=== PATIENT | male | born 1935 | race Caucasian/White ===

== ENCOUNTER 2019-01-28 08:42 | Emergency (ER) | payer OTHER, MEDICARE ==
--- NOTE | 2019-01-28 09:18 | EDPHY ---
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 He lives at [facility] and the staff was assisting him to stand up. Upon standing, he slumped over and then had generalized seizure-like activity. He was helped to the floor and did not hurt himself. He was somnulent after the episode, unknown if confused as he is nonverbal. He is currently sleeping and snoring, which is not unusual activity for him, according to his son. REVIEW OF SYSTEMS: unable to obtain - Personal History Current Tetanus/Diphtheria Vaccine: Yes Tetanus Vaccine Date: 2003 - Medical/Surgical History Hx Asthma: No Hx Chronic Respiratory Disease: No Hx Diabetes: No Hx Cardiac Disease: No Hx Renal Disease: No Hx Cirrhosis: No Hx Alcoholism: No Hx HIV/AIDS: No Hx Splenectomy or Spleen Trauma: No Other PMH: Alzheimer's disease - Social History Smoking Status: Former smoker Alcohol Use: None Drug Use: None Additional Social History: - Physical Exam Exam: General Appearance: Lethargic, groans to verbal stimuli, opens eyes spontaneously and looks around Eyes: Pupils equal and round, no conjunctival pallor or injection ENT, Mouth: Mucous membranes moist Neck: Normal inspection Respiratory: Lungs are clear to auscultation anteriorly Cardiovascular: Regular rate and rhythm Gastrointestinal: Abdomen is soft and nontender Neurological: Lethargic, moves all extremities equally, does not follow commands, nonfocal exam Skin: Warm and dry Extremities: Normal inspection on exposed skin Psychiatric: Unable to determine Constitutional: Initial Vital Signs Heart Rate 73 01/28/19 08:59 Respiratory Rate 16 01/28/19 08:59 Blood Pressure 93/59 L 01/28/19 08:59 O2 Sat (%) 91 L 01/28/19 08:59 O2 Delivery Mode Room Air O2 (L/minute) 2 Allergies/Adverse Reactions: celecoxib [From Celebrex] Allergy (Intermediate, Verified 01/28/19 09:13) Rash Penicillins Allergy (Intermediate, Verified 01/28/19 09:13) Rash Home Medications: Medication Instructions Recorded Donepezil HCl [Aricept] 10 mg PO DAILY 03/17/16 Doxazosin Mesylate [Cardura 4 MG 4 mg PO DAILY 03/17/16 (RX)] Finasteride [Proscar 5 MG (*)] 5 mg PO DAILY 03/17/16 Memantine HCl [Namenda Xr] 28 mg PO DAILY 03/17/16 Omeprazole [Prilosec 20 mg] 20 mg PO DAILY 03/17/16 Rosuvastatin Calcium [Crestor 40mg 40 mg PO DAILY 03/17/16 (RX)] levOFLOXACIN [levAQUIN (RX)] 750 mg PO DAILY #5 tab 03/17/16 Medical Decision Making - Diagnostics EKG Interpretation: EKG interpreted by me reveals NSR, rate 69, IVCD, no St/T changes. Interpretation: abnormal EKG ED Course/Re-evaluation: This patient presents after an episode of loss of consciousness, either secondary to a primary seizure or to a syncopal episode. He has baseline hypotension, according to the son and a blood pressure of 93/67 is not unusual for him. Mental status is typical for the patient as well. He has advanced dementia and often sleeps throughout most the day and does not speak. Discussion with the son, declines CT scan or further evaluation for seizure/ syncope. Comfort care only, labs ok. The family is in agreement with this and the patient has a DNR order. Will obtain labs and EKG and will monitor for 1-2 hours. IV NS 1 liter given for possible dehydration. During ED obs, pt remained at baseline MS. Ate cookies/drank fluids, more alert while eating. Labs/EKG unremarkable. hall monitor: NSR throughout. Family would like to take him home. Understand limitations in diagnosis, comfortable with decision not to proceed with eval. Differential Diagnosis: Altered mental status including but not limited to hypoglycemia, infectious process, electrolyte abnormality, head injury, CVA, and intoxicants. - Data Points Laboratory Results: Laboratory Results 01/28/19 09:05 01/28/19 09:05 01/28/19 01/28/19 01/28/19 09:22 09:15 09:05 WBC RBC Hgb POC Hgb 14.6 gm/dL gm/dL (13.7-17.5) Hct POC Hct 43 % % (40-51) MCV MCH MCHC RDW Plt Count MPV Neut % (Auto) Lymph % (Auto) Brule % (Auto) Eos % (Auto) Baso % (Auto) Nucleat RBC Rel Count Absolute Neuts (auto) Absolute Lymphs (auto) Absolute Monos (auto) Absolute Eos (auto) Absolute Basos (auto) Absolute Nucleated RBC Immature Gran % Immature Gran # POC Sodium 144 mEq/L mEq/L (135-145) Sodium 140 mEq/L mEq/L (135-145) POC Potassium 3.4 mEq/L mEq/L (3.3-5.0) Potassium 3.7 mEq/L mEq/L (3.5-5.2) POC Chloride 107 mEq/L mEq/L (97-110) Chloride 108 mEq/L mEq/L (97-110) Carbon Dioxide 18 mEq/l L mEq/l (22-31) POC Total CO2 17 mEq/L L mEq/L (22-31) Anion Gap 14 mEq/L mEq/L (6-14) POC BUN 17 mg/dL mg/dL (7-23) BUN 17 mg/dL mg/dL (7-23) Creatinine 0.9 mg/dL mg/dL (0.7-1.3) POC Creatinine 0.8 mg/dL mg/dL (0.7-1.3) Estimated GFR > 60 Glucose 116 mg/dL H mg/dL (70-100) POC Glucose 119 mg/dL H mg/dL (70-100) Calcium 8.9 mg/dL mg/dL (8.5-10.4) POC Troponin I 0.00 ng/mL ng/mL (0.00-0.08) 01/28/19 09:05 WBC 5.93 10^3/uL 10^3/uL (3.80-9.50) RBC 4.71 10^6/uL 10^6/uL (4.40-6.38) Hgb 14.7 g/dL g/dL (13.7-17.5) POC Hgb Hct 44.1 % % (40.0-51.0) POC Hct MCV 93.6 fL fL (81.5-99.8) MCH 31.2 pg pg (27.9-34.1) MCHC 33.3 g/dL g/dL (32.4-36.7) RDW 13.1 % % (11.5-15.2) Plt Count 160 10^3/uL 10^3/uL (150-400) MPV 10.1 fL fL (8.7-11.7) Neut % (Auto) 63.9 % % (39.3-74.2) Lymph % (Auto) 24.1 % % (15.0-45.0) Brule % (Auto) 6.9 % % (4.5-13.0) Eos % (Auto) 2.5 % % (0.6-7.6) Baso % (Auto) 0.7 % % (0.3-1.7) Nucleat RBC Rel Count 0.0 % % (0.0-0.2) Absolute Neuts (auto) 3.79 10^3/uL 10^3/uL (1.70-6.50) Absolute Lymphs (auto) 1.43 10^3/uL 10^3/uL (1.00-3.00) Absolute Monos (auto) 0.41 10^3/uL 10^3/uL (0.30-0.80) Absolute Eos (auto) 0.15 10^3/uL 10^3/uL (0.03-0.40) Absolute Basos (auto) 0.04 10^3/uL 10^3/uL (0.02-0.10) Absolute Nucleated RBC 0.00 10^3/uL 10^3/uL (0-0.01) Immature Gran % 1.9 % H % (0.0-1.1) Immature Gran # 0.11 10^3/uL H 10^3/uL (0.00-0.10) POC Sodium Sodium POC Potassium Potassium POC Chloride Chloride Carbon Dioxide POC Total CO2 Anion Gap POC BUN BUN Creatinine POC Creatinine Estimated GFR Glucose POC Glucose Calcium POC Troponin I Point of Care Test Results: Chemistry 01/28/19 01/28/19 09:22 09:15 POC Sodium 144 mEq/L mEq/L (135-145) POC Potassium 3.4 mEq/L mEq/L (3.3-5.0) POC Chloride 107 mEq/L mEq/L (97-110) POC Total CO2 17 mEq/L L mEq/L (22-31) POC BUN 17 mg/dL mg/dL (7-23) POC Creatinine 0.8 mg/dL mg/dL (0.7-1.3) POC Glucose 119 mg/dL H mg/dL (70-100) POC Troponin I 0.00 ng/mL ng/mL (0.00-0.08) ISTAT H&H 01/28/19 09:15 POC Hgb 14.6 gm/dL gm/dL (13.7-17.5) POC Hct 43 % % (40-51) Departure - Departure Disposition: Home, Routine, Self-Care Clinical Impression: Syncope Condition: Good Instructions: Syncope (ED), New-Onset Seizure in Adults (ED) Additional Instructions: Return with any concerns. Referrals: Tony Billings MD [Primary Care Provider] - As per Instructions
[2019-01-28 09:30] LABS: PLATELET COUNT 160 10^3/uL (150-400)
[2019-01-28 10:53] VITALS: BP 110/79
--- NOTE | 2019-01-28 14:53 | CPEKG ---
Test Reason : OPEN Blood Pressure : / mmHG Vent. Rate : 069 BPM Atrial Rate : 069 BPM P-R Int : 176 ms QRS Dur : 120 ms QT Int : 459 ms P-R-T Axes : 026 032 -14 degrees QTc Int : 492 ms Sinus rhythm IVCD, consider atypical RBBB Confirmed by Unique Escamilla ([id number]) on 01/28/2019 2:52:40 PM Referred By: Unique Escamilla Confirmed By:Unique Escamilla
== END 2019-01-28 11:28 | disposition home or self-care (01) ==
LOC: EDUNIT#
DX: R55 Syncope and collapse (principal); G30.9 Alzheimer's disease, unspecified; F02.80 Dementia in other diseases classified elsewhere, unspecified severity, without behavioral disturbance, psychotic disturbance, mood disturbance, and anxiety
CPT/HCPCS: 82435-PO; 82565-PO; 82947-PO; 84132-PO; 84295-PO; 84484-ER; 84520-PO; 85014-ER